=== PATIENT | female | born 1985 | race Hispanic/Latino ===

== ENCOUNTER 2024-04-13 17:20 | Outpatient (CLI) | payer OTHER | END 2024-04-13 17:21 | disposition home or self-care (01) | LOC: MADCT 17:20 | PROVIDERS: ATTEND Registered Nurse | DX: G43.009 Migraine without aura, not intractable, without status migrainosus (principal) | CPT/HCPCS: 70450 ==

== ENCOUNTER 2024-08-02 11:46 | Emergency (ER) | payer OTHER ==
[2024-08-02] MEDS ORDERED: Boostrix 0.5 ML (Tdap) VIAL (>/=7 yrs of age) ONE (12:02)
[2024-08-02] MEDS ORDERED: Lidocaine 1% (PF) 30 ML VIAL ONE (12:02)
[2024-08-02] MEDS ORDERED: Bacitracin 1 PK ONE (12:02)
== END 2024-08-02 12:38 | disposition home or self-care (01) ==
LOC: MADERS 11:46
DX: S61.012A Laceration without foreign body of left thumb without damage to nail, initial encounter (principal); W26.0XXA Contact with knife, initial encounter; Z23 Encounter for immunization
CPT/HCPCS: 12001; 29125; 90471; 90715

== ENCOUNTER 2025-04-10 17:30 | Outpatient (CLI) | payer OTHER | END 2025-04-10 17:31 | disposition home or self-care (01) | LOC: MADRAD 17:30 | PROVIDERS: ATTEND Registered Nurse | DX: M54.50 Low back pain, unspecified (principal); M47.817 Spondylosis without myelopathy or radiculopathy, lumbosacral region | CPT/HCPCS: 72100 ==